=== PATIENT | female | born 1990 | race Caucasian/White ===

== ENCOUNTER 2017-02-14 04:04 | Emergency (ER) | payer SELFPAY ==
[2017-02-14 04:36] VITALS: BP 181/103
[2017-02-14 05:07] LABS: Bilirubin,Urine NEG (Negative); Blood,Urine MOD (Negative); Ketones,Urine NEG (Negative); Leukocyte Esterase,Urine TR (Negative); Mucus,Urine FEW /HPF; Nitrite,Urine NEG (Negative); Protein,Urine <15 mg/dL mg/dL (Negative); Urobilinogen,Urine < 2.0 mg/dL (<2.0)
== END 2017-02-14 05:25 | disposition left against medical advice (07) ==
LOC: ED 04:04
DX: M54.9 Dorsalgia, unspecified (principal); Z53.21 Procedure and treatment not carried out due to patient leaving prior to being seen by health care provider